=== PATIENT | male | born 1990 | race Two or more races ===

== ENCOUNTER 2020-05-19 22:21 | Emergency (ER) | payer SELFPAY ==
[~2020-05-19] VITALS: Ht 170.2 cm; Wt 77.0 kg
[2020-05-19 22:33] VITALS: BP 99/18
== END 2020-05-19 23:04 | disposition left against medical advice (07) ==
LOC: ER 22:21
DX: Z53.21 Procedure and treatment not carried out due to patient leaving prior to being seen by health care provider (principal)